=== PATIENT | male | born 1985 | race African-American/Black ===

== ENCOUNTER 2016-12-27 15:13 | Emergency (ER) | payer MEDICAID, OTHER ==
[~2016-12-27] VITALS: Ht 188 cm; Wt 118.2 kg
[2016-12-27] MEDS ORDERED: LISI10TA7 PO (15:26)
[2016-12-27 16:08] VITALS: BP 140/99
== END 2016-12-27 16:42 | disposition home or self-care (01) ==
LOC: EMS 15:14
DX: I10 Essential (primary) hypertension (principal); R51 Headache; F12.90 Cannabis use, unspecified, uncomplicated; Z79.899 Other long term (current) drug therapy
CPT/HCPCS: 99283

== ENCOUNTER 2017-06-08 05:30 | Emergency (ER) | payer OTHER ==
[~2017-06-08] VITALS: Ht 188 cm; Wt 118.2 kg
[~2017-06-08 05:30] MED LIST: LISI10TA7 PO
[2017-06-08] MEDS ORDERED: HYDROCODONE/ACETAMINOPHEN 5-325 MG TABLET PO ONE (08:30)
[2017-06-08] MEDS ORDERED: CEPHALEXIN MONOHYDRATE 500 MG CAPSULE PO ONE (08:30)
[2017-06-08] MEDS ORDERED: SULFAMETHOX/TRIMETH DS 800-160 MG/TABLET PO ONE (08:30)
[2017-06-08] MEDS ORDERED: BACITRACIN 0.9 GM PACKET OINTMENT TP ONE (08:30)
[2017-06-08] MEDS ORDERED: LISINOPRIL 10 MG TABLET PO ONE (08:45)
[2017-06-08 08:50] VITALS: BP 166/99
== END 2017-06-08 09:00 | disposition home or self-care (01) ==
LOC: EMS 05:31
DX: L02.411 Cutaneous abscess of right axilla (principal); I10 Essential (primary) hypertension; F17.200 Nicotine dependence, unspecified, uncomplicated; F12.90 Cannabis use, unspecified, uncomplicated
CPT/HCPCS: 99284